=== PATIENT | female | born 1980 | race African-American/Black ===

== ENCOUNTER 2020-08-05 21:07 | Emergency (ER) | payer MEDICAID ==
[~2020-08-05] VITALS: Ht 172.7 cm; Wt 64.0 kg
[~2020-08-05 21:07] MED LIST: ABIL5 MT; AMI2 MT; APIX5TAB MT; COR3 MT; FURO-152 MT; GABA-532 MT; HYDR-4001 MT; LEVO500T2 MT; LORA-250 PO; MAGN400T26 MT; SERT-422 MT
[2020-08-05] MEDS ORDERED: ONDANSETRON HCL 4MG/2ML INJ IV STA (23:28)
[2020-08-05] MEDS ORDERED: MORPHINE SULFATE 4 MG/ML CPJ (NOT FOR IM USE) IV STA (23:28)
[2020-08-05] MEDS ORDERED: SODIUM CHLORIDE 0.9% 1,000 ML IV ONE (23:30)
[2020-08-06 00:03] LABS: EOSINOPHILS % 1.8 % (0.0-5.0); HEMATOCRIT. 29.9 % (36.0-48.0); HEMOGLOBIN. 9.1 g/dL (12.0-16.0); LYMPHOCYTES % 39.4 % (20.0-50.0); MEAN CORPUSCULAR HEMOGLOBIN 25.1 pg (28.0-32.0); MEAN CORPUSCULAR VOLUME 82.8 fL (81.0-99.0); MEAN PLATELET VOLUME 8.3 fl (7.4-10.4); MONOCYTES % 7.4 % (2.0-8.0); NEUTROPHILS % 50.4 % (40.0-76.0); PLATELET 260 x1000/uL (130-400); RED BLOOD CELL COUNT 3.61 mill/uL (4.2-5.4); RED CELL DISTRIBUTION WIDTH 23.3 % (11.6-14.6)
[2020-08-06 00:09] LABS: CHLORIDE 106 mEq/L (98-107)
[2020-08-06 00:30] LABS: HCG SCREEN NEGATIVE
[2020-08-06 01:01] LABS: CLARITY URINE CLOUDY (CLEAR); COLOR URINE DARK YELLOW (YELLOW); KETONES URINE TRACE (NEGATIVE); LEUKOCYTE ESTERASE URINE NEGATIVE (NEGATIVE); NITRITE URINE NEGATIVE (NEGATIVE); OCCULT BLOOD URINE NEGATIVE (NEGATIVE); PH URINE 5.5 (4.5-8.0); PROTEIN URINE 2+ (NEGATIVE); SPECIFIC GRAVITY URINE 1.024 (1.005-1.030)
[2020-08-06] MEDS ORDERED: LORAZEPAM 1MG TABLET PO ONE (03:30)
[2020-08-06] MEDS ORDERED: ONDANSETRON 4MG ODT PO ONE (06:00)
[2020-08-06 07:30] VITALS: BP 119/78
== END 2020-08-06 08:25 ==
LOC: ER 21:07
DX: R10.9 Unspecified abdominal pain (principal); I82.409 Acute embolism and thrombosis of unspecified deep veins of unspecified lower extremity; I11.0 Hypertensive heart disease with heart failure; I50.9 Heart failure, unspecified; Z87.01 Personal history of pneumonia (recurrent); Z86.73 Personal history of transient ischemic attack (TIA), and cerebral infarction without residual deficits; Z79.899 Other long term (current) drug therapy; Z88.0 Allergy status to penicillin; Z91.040 Latex allergy status
CPT/HCPCS: 36415; 71045; 74176; 80053; 81003; 81025; 83605; 83690; 84703; 85025; 96361; 96374; 96375; 99285; J2270; J2405; J7030; Q0162; Z7610

== ENCOUNTER 2020-08-14 23:29 | Inpatient (IN) | payer MEDICAID ==
[~2020-08-14] VITALS: Ht 190.5 cm; Wt 59.9 kg
[2020-08-14] MEDS ORDERED: ONDANSETRON HCL 4MG/2ML INJ IV STA (23:43)
[2020-08-14] MEDS ORDERED: MORPHINE SULFATE 4 MG/ML CPJ (NOT FOR IM USE) IV STA (23:43)
[2020-08-14] MEDS ORDERED: ASPIRIN 81MG TABLET PO ONE (23:45)
[2020-08-15 00:42] LABS: CHLORIDE 110 mEq/L (98-107)
[2020-08-15 00:46] LABS: ETHANOL BLOOD < 10 mg/dL
[2020-08-15 00:53] LABS: BASOPHILS % 1.6 % (0.0-2.0); EOSINOPHILS % 5.4 % (0.0-5.0); HEMATOCRIT. 30.8 % (36.0-48.0); HEMOGLOBIN. 9.6 g/dL (12.0-16.0); MEAN CORPUSCULAR HEMOGLOBIN 24.9 pg (28.0-32.0); MEAN CORPUSCULAR VOLUME 79.5 fL (81.0-99.0); MEAN PLATELET VOLUME 8.6 fl (7.4-10.4); MONOCYTES % 10.5 % (2.0-8.0); NEUTROPHILS % 46.5 % (40.0-76.0); PLATELET 257 x1000/uL (130-400); RED BLOOD CELL COUNT 3.88 mill/uL (4.2-5.4); RED CELL DISTRIBUTION WIDTH 21.7 % (11.6-14.6)
[2020-08-15 01:27] LABS: INR 1.4; PROTHROMBIN TIME 14.2 sec (9.6-11.0)
[2020-08-15] MEDS ORDERED: ENOXAPARIN 100MG/ML SYR SUBCUT SCH (03:00)
[2020-08-15] MEDS ORDERED: MORPHINE SULFATE 4 MG/ML CPJ (NOT FOR IM USE) IV SCH (04:45)
[2020-08-15] MEDS ORDERED: ONDANSETRON HCL 4MG/2ML INJ IV SCH (04:45)
[2020-08-15 04:47] LABS: CHLORIDE 110 mEq/L (98-107)
[2020-08-15] MEDS ORDERED: IOHEXOL-350 100 ML BOTTLE ONE (05:11)
[2020-08-15] MEDS ORDERED: ONDANSETRON HCL 4MG/2ML INJ IV PRN ×3 (08:45→13:30)
[2020-08-15] MEDS ORDERED: ACETAMINOPHEN 325MG TABLET PO PRN ×2 (08:45→09:00)
[2020-08-15] MEDS ORDERED: TRAMADOL 50MG TABLET PO PRN ×2 (08:45→09:00)
[2020-08-15 09:00] VITALS: BP 131/100
[2020-08-15] MEDS ORDERED: APIXABAN 5 MG TABLET PO SCH (09:00)
[2020-08-15] MEDS ORDERED: CARVEDILOL 3.125 MG TABLET PO SCH (09:00)
[2020-08-15] MEDS ORDERED: FUROSEMIDE 40MG/4ML VIAL IVP SCH (09:00)
[2020-08-15] MEDS ORDERED: FERROUS SULFATE 325MG TABLET PO SCH (09:00)
[2020-08-15] MEDS ORDERED: ENOXAPARIN 30MG/0.3ML SYR SUBCUT SCH (09:00)
[2020-08-15] MEDS ORDERED: DOCUSATE SODIUM 250MG CAPSULE PO SCH (09:00)
[2020-08-15 09:06] VITALS: BP 131/100
[2020-08-15] MEDS ORDERED: NITROGLYCERIN OINT 1GM/INCH UDPKT TD SCH (09:30)
[2020-08-15] MEDS: CARVEDILOL 3.125 MG TABLET PO SCH ×2 (09:30→21:05)
[2020-08-15] MEDS: DOCUSATE SODIUM SUGAR FREE 100MG/10ML UDC PO SCH ×2 (11:00→12:07)
[2020-08-15 12:00] VITALS: BP 111/77
[2020-08-15] MEDS: NITROGLYCERIN OINT 1GM/INCH UDPKT TD SCH ×2 (12:10→21:05)
[2020-08-15] MEDS: FERROUS SULFATE 325MG TABLET PO SCH ×2 (12:11→17:59)
[2020-08-15] MEDS: FUROSEMIDE 40MG/4ML VIAL IVP SCH ×2 (12:11→17:59)
[2020-08-15] MEDS: ONDANSETRON HCL 4MG/2ML INJ IV PRN ×2 (13:50→19:43)
[2020-08-15 16:00] VITALS: BP 101/69
[2020-08-15] MEDS: APIXABAN 5 MG TABLET PO SCH (17:59)
[2020-08-15] MEDS: KETOROLAC 30MG/ML VIAL IV PRN (21:01)
[2020-08-16] MEDS: ONDANSETRON HCL 4MG/2ML INJ IV PRN ×2 (02:01→12:40)
[2020-08-16] MEDS: KETOROLAC 30MG/ML VIAL IV PRN (02:39)
[2020-08-16] MEDS: NITROGLYCERIN OINT 1GM/INCH UDPKT TD SCH ×2 (02:42→12:45)
[2020-08-16] MEDS: FUROSEMIDE 40MG/4ML VIAL IVP SCH (05:58)
[2020-08-16] MEDS: FERROUS SULFATE 325MG TABLET PO SCH ×2 (07:40→12:40)
[2020-08-16] MEDS: CARVEDILOL 3.125 MG TABLET PO SCH (09:00)
[2020-08-16] MEDS: DOCUSATE SODIUM SUGAR FREE 100MG/10ML UDC PO SCH (09:00)
[2020-08-16] MEDS: APIXABAN 5 MG TABLET PO SCH (09:00)
[2020-08-16 12:03] VITALS: BP 120/81
== END 2020-08-16 15:15 | DRG 194 ==
LOC: ER 23:29 → 8WST 08-15 05:09 → ENRESERV 08-15 07:59 → ER 08-15 08:40
PROVIDERS: ADMIT Internal Medicine; ATTEND Internal Medicine
DX: I11.0 Hypertensive heart disease with heart failure (principal); R18.8 Other ascites; E44.0 Moderate protein-calorie malnutrition; I42.9 Cardiomyopathy, unspecified; E87.5 Hyperkalemia; I50.23 Acute on chronic systolic (congestive) heart failure; D64.9 Anemia, unspecified; R07.89 Other chest pain; R74.01 Elevation of levels of liver transaminase levels; Z86.711 Personal history of pulmonary embolism; Z88.8 Allergy status to other drugs, medicaments and biological substances; Z91.040 Latex allergy status; Z68.1 Body mass index [BMI] 19.9 or less, adult; Z79.899 Other long term (current) drug therapy
CPT/HCPCS: 36415; 71045; 71275; 76700; 80053; 80320; 83880; 84484; 85025; 93005; 93306; 93970; 99291; J1650; J1885; J1940; J2270; J2405; Q9967; G0480

== ENCOUNTER 2020-08-31 01:57 | Inpatient (IN) | payer MEDICAID ==
[~2020-08-31] VITALS: Ht 190.5 cm; Wt 95.3 kg
[2020-08-31] MEDS ORDERED: ONDANSETRON HCL 4MG/2ML INJ IV STA (03:32)
[2020-08-31] MEDS ORDERED: MORPHINE SULFATE 4 MG/ML CPJ (NOT FOR IM USE) IV STA (03:32)
[2020-08-31] MEDS ORDERED: ASPIRIN 81MG TABLET PO ONE (03:45)
[2020-08-31] MEDS ORDERED: NITROGLYCERIN OINT 1GM/INCH UDPKT TD ONE (03:45)
[2020-08-31 04:09] LABS: BASOPHILS % 0.8 % (0.0-2.0); EOSINOPHILS % 1.3 % (0.0-5.0); HEMATOCRIT. 32.4 % (36.0-48.0); HEMOGLOBIN. 9.9 g/dL (12.0-16.0); LYMPHOCYTES % 33.1 % (20.0-50.0); MEAN CORPUSCULAR HEMOGLOBIN 24.3 pg (28.0-32.0); MEAN CORPUSCULAR VOLUME 79.9 fL (81.0-99.0); MEAN PLATELET VOLUME 8.4 fl (7.4-10.4); MONOCYTES % 13.5 % (2.0-8.0); NEUTROPHILS % 51.3 % (40.0-76.0); PLATELET 199 x1000/uL (130-400); RED BLOOD CELL COUNT 4.06 mill/uL (4.2-5.4); RED CELL DISTRIBUTION WIDTH 21.6 % (11.6-14.6)
[2020-08-31 04:17] LABS: CHLORIDE 105 mEq/L (98-107)
[2020-08-31 04:19] LABS: INR 1.4; PROTHROMBIN TIME 14.5 sec (9.6-11.0)
[2020-08-31 04:46] LABS: HCG SCREEN NEGATIVE
[2020-08-31] MEDS ORDERED: DOCUSATE SODIUM 100MG CAPSULE PO PRN (12:30)
[2020-08-31] MEDS ORDERED: MAGNESIUM/ALUMINUM HYDROXIDE/SIMETHICONE 30ML UDC PO PRN (12:30)
[2020-08-31] MEDS ORDERED: CLONIDINE 0.1MG TABLET PO PRN (12:30)
[2020-08-31] MEDS ORDERED: ACETAMINOPHEN 325MG TABLET PO PRN (12:30)
[2020-08-31] MEDS: LORAZEPAM 1MG TABLET PO PRN (13:04)
[2020-08-31] MEDS: GABAPENTIN 300MG CAPSULE PO SCH ×2 (13:05→17:13)
[2020-08-31] MEDS: ONDANSETRON HCL 4MG/2ML INJ IV PRN ×2 (13:13→20:03)
[2020-08-31] MEDS: HYDROCODONE/ACETAMINOPHEN 5/325MG TABLET PO PRN ×2 (13:13→13:47)
[2020-08-31] MEDS: APIXABAN 5 MG TABLET PO SCH ×2 (14:27→17:15)
[2020-08-31] MEDS: AMIODARONE HCL 200 MG TABLET PO SCH ×2 (14:27→17:14)
[2020-08-31 14:52] LABS: TOTAL IRON BINDING CAPACITY 430 ug/dL (250-450)
[2020-08-31] MEDS: MAGNESIUM OXIDE 400MG TABLET PO SCH (17:14)
[2020-08-31] MEDS: FUROSEMIDE 20MG TABLET PO SCH (17:15)
[2020-09-01] MEDS: LORAZEPAM 1MG TABLET PO PRN ×2 (00:13→17:52)
[2020-09-01] MEDS: ONDANSETRON HCL 4MG/2ML INJ IV PRN ×3 (03:18→20:36)
[2020-09-01 05:59] LABS: BASOPHILS % 0.9 % (0.0-2.0); EOSINOPHILS % 2.6 % (0.0-5.0); HEMATOCRIT. 30.9 % (36.0-48.0); HEMOGLOBIN. 9.6 g/dL (12.0-16.0); LYMPHOCYTES % 44.6 % (20.0-50.0); MEAN CORPUSCULAR HEMOGLOBIN 24.5 pg (28.0-32.0); MEAN CORPUSCULAR VOLUME 79.3 fL (81.0-99.0); MEAN PLATELET VOLUME 8.9 fl (7.4-10.4); MONOCYTES % 13.1 % (2.0-8.0); NEUTROPHILS % 38.8 % (40.0-76.0); PLATELET 172 x1000/uL (130-400); RED CELL DISTRIBUTION WIDTH 21.3 % (11.6-14.6)
[2020-09-01 06:10] LABS: CHLORIDE 105 mEq/L (98-107)
[2020-09-01 06:20] LABS: PHOSPHORUS 4.2 mg/dL (2.5-4.9)
[2020-09-01 06:21] LABS: LDL CHOLESTEROL 45 mg/dL (5-100)
[2020-09-01 06:22] LABS: HDL CHOLESTEROL 44 mg/dL (40-59)
[2020-09-01 10:00] VITALS: BP 108/78
[2020-09-01] MEDS: FUROSEMIDE 20MG TABLET PO SCH ×2 (10:20→17:41)
[2020-09-01] MEDS: AMIODARONE HCL 200 MG TABLET PO SCH ×2 (10:20→17:41)
[2020-09-01] MEDS: PANTOPRAZOLE SODIUM 40 MG/VIAL IV SCH (10:22)
[2020-09-01] MEDS: SERTRALINE HCL 50MG TABLET PO SCH (10:22)
[2020-09-01] MEDS: HYDROCODONE/ACETAMINOPHEN 5/325MG TABLET PO PRN (10:22)
[2020-09-01] MEDS: MAGNESIUM OXIDE 400MG TABLET PO SCH ×2 (10:22→17:41)
[2020-09-01] MEDS: GABAPENTIN 300MG CAPSULE PO SCH ×3 (10:23→17:42)
[2020-09-01] MEDS: APIXABAN 5 MG TABLET PO SCH (10:23)
[2020-09-01 12:00] VITALS: BP 110/71
[2020-09-01] MEDS: ARIPIPRAZOLE 5MG TABLET PO SCH (12:08)
[2020-09-01 12:10] VITALS: BP 108/78
[2020-09-01 16:00] VITALS: BP 104/67
[2020-09-01] MEDS: METOCLOPRAMIDE HCL 10MG/2ML VIAL IV SCH ×2 (17:32→23:17)
[2020-09-01 20:00] VITALS: BP 108/71
[2020-09-01] MEDS: MORPHINE SULFATE 2 MG/ML CPJ (NOT FOR IM USE) IV PRN (21:56)
[2020-09-01] MEDS: ENOXAPARIN 100MG/ML SYR SUBCUT SCH (21:57)
[2020-09-02] VITALS: BP 107/67
[2020-09-02] MEDS: MORPHINE SULFATE 2 MG/ML CPJ (NOT FOR IM USE) IV PRN ×2 (02:01→06:33)
[2020-09-02] MEDS: ONDANSETRON HCL 4MG/2ML INJ IV PRN (02:40)
[2020-09-02 04:00] VITALS: BP 108/68
[2020-09-02] MEDS: METOCLOPRAMIDE HCL 10MG/2ML VIAL IV SCH (05:03)
[2020-09-02 06:13] LABS: CHLORIDE 104 mEq/L (98-107)
[2020-09-02 06:16] LABS: INR 1.4; PROTHROMBIN TIME 14.4 sec (9.6-11.0)
[2020-09-02 06:18] LABS: AMYLASE 45 IU/L (25-115)
[2020-09-02 06:19] LABS: GAMMA GLUTAMYL TRANSPEPTIDASE 129 IU/L (7-32)
[2020-09-02 06:20] LABS: PHOSPHORUS 4.1 mg/dL (2.5-4.9)
[2020-09-02 06:33] LABS: BASOPHILS % 0.7 % (0.0-2.0); EOSINOPHILS % 2.6 % (0.0-5.0); HEMATOCRIT. 30.6 % (36.0-48.0); HEMOGLOBIN. 9.5 g/dL (12.0-16.0); MEAN CORPUSCULAR HEMOGLOBIN 24.6 pg (28.0-32.0); MONOCYTES % 11.9 % (2.0-8.0); NEUTROPHILS % 45.8 % (40.0-76.0); PLATELET 192 x1000/uL (130-400); RED BLOOD CELL COUNT 3.88 mill/uL (4.2-5.4); RED CELL DISTRIBUTION WIDTH 21.1 % (11.6-14.6)
[2020-09-02 06:37] LABS: FERRITIN 69 ng/mL (10-291)
[2020-09-02 06:44] LABS: VITAMIN B12 SERUM 1147 pg/mL (211-911)
[2020-09-02 06:48] LABS: HEPATITIS B SURFACE ANTIGEN NEGATIVE
[2020-09-02 07:20] LABS: HEPATITIS A AB IGM NEGATIVE (NEGATIVE)
[2020-09-02] MEDS ORDERED: KETOROLAC 15MG/ML VIAL IV ONE (07:45)
[2020-09-02 08:00] VITALS: BP 103/65
[2020-09-02] MEDS: FUROSEMIDE 20MG TABLET PO SCH ×2 (09:35→17:13)
[2020-09-02] MEDS: GABAPENTIN 300MG CAPSULE PO SCH ×3 (09:35→17:12)
[2020-09-02] MEDS: AMIODARONE HCL 200 MG TABLET PO SCH ×2 (09:35→17:12)
[2020-09-02] MEDS: SERTRALINE HCL 50MG TABLET PO SCH (09:35)
[2020-09-02] MEDS: ARIPIPRAZOLE 5MG TABLET PO SCH (09:35)
[2020-09-02] MEDS: MAGNESIUM OXIDE 400MG TABLET PO SCH ×2 (09:35→17:12)
[2020-09-02] MEDS: PANTOPRAZOLE SODIUM 40 MG/VIAL IV SCH (09:35)
[2020-09-02] MEDS: ENOXAPARIN 100MG/ML SYR SUBCUT SCH ×2 (09:42→21:50)
[2020-09-02] MEDS ORDERED: LEVO25TA7 PO (10:25)
[2020-09-02 12:00] VITALS: BP 125/71
[2020-09-02] MEDS: METOCLOPRAMIDE HCL 10MG TABLET PO SCH ×2 (12:45→17:12)
[2020-09-02] MEDS: HYDROCODONE/ACETAMINOPHEN 5/325MG TABLET PO PRN (12:46)
[2020-09-02 16:00] VITALS: BP 115/74
[2020-09-02 20:00] VITALS: BP 101/70
[2020-09-03] VITALS (7 sets, daily range): BP systolic 98–120; BP diastolic 63–80
[2020-09-03] MEDS: METOCLOPRAMIDE HCL 10MG TABLET PO SCH ×4 (00:01→17:34)
[2020-09-03] MEDS: DIPHENHYDRAMINE 25MG CAPSULE PO PRN (00:01)
[2020-09-03] MEDS: ONDANSETRON 4MG ODT PO PRN ×2 (05:12→14:17)
[2020-09-03] MEDS: PANTOPRAZOLE 40MG DR TABLET PO SCH (05:49)
[2020-09-03] MEDS: LEVOTHYROXINE SODIUM 25MCG TABLET PO SCH (05:49)
[2020-09-03 07:05] LABS: INR 1.4; PROTHROMBIN TIME 14.9 sec (9.6-11.0)
[2020-09-03 07:11] LABS: PHOSPHORUS 3.4 mg/dL (2.5-4.9)
[2020-09-03] MEDS: FUROSEMIDE 20MG TABLET PO SCH ×2 (09:55→17:34)
[2020-09-03] MEDS: ARIPIPRAZOLE 5MG TABLET PO SCH (09:56)
[2020-09-03] MEDS: GABAPENTIN 300MG CAPSULE PO SCH ×3 (09:56→17:34)
[2020-09-03] MEDS: MAGNESIUM OXIDE 400MG TABLET PO SCH ×2 (09:56→17:35)
[2020-09-03] MEDS: SERTRALINE HCL 50MG TABLET PO SCH (09:56)
[2020-09-03] MEDS: ENOXAPARIN 100MG/ML SYR SUBCUT SCH ×2 (09:59→21:12)
[2020-09-03] MEDS: AMIODARONE HCL 200 MG TABLET PO SCH ×2 (10:01→17:34)
[2020-09-03] MEDS: LORAZEPAM 2MG/ML CPJ IV PRN ×2 (10:49→18:42)
[2020-09-03] MEDS: MORPHINE SULFATE 2 MG/ML CPJ (NOT FOR IM USE) IV PRN ×2 (15:34→22:14)
[2020-09-03] MEDS: ONDANSETRON HCL 4MG/2ML INJ IV PRN (22:13)
[2020-09-04] VITALS: BP 118/83
[2020-09-04] MEDS: LORAZEPAM 2MG/ML CPJ IV PRN ×3 (01:24→23:06)
[2020-09-04 04:00] VITALS: BP 115/74
[2020-09-04] MEDS: ONDANSETRON HCL 4MG/2ML INJ IV PRN ×3 (04:37→20:27)
[2020-09-04] MEDS: MORPHINE SULFATE 2 MG/ML CPJ (NOT FOR IM USE) IV PRN ×3 (04:38→20:28)
[2020-09-04] MEDS: METOCLOPRAMIDE HCL 10MG TABLET PO SCH ×7 (06:00→23:02)
[2020-09-04] MEDS: PANTOPRAZOLE 40MG DR TABLET PO SCH (06:45)
[2020-09-04] MEDS: LEVOTHYROXINE SODIUM 25MCG TABLET PO SCH (06:45)
[2020-09-04 07:04] LABS: BASOPHILS % 0.9 % (0.0-2.0); EOSINOPHILS % 1.1 % (0.0-5.0); HEMATOCRIT. 28.8 % (36.0-48.0); HEMOGLOBIN. 8.9 g/dL (12.0-16.0); LYMPHOCYTES % 41.2 % (20.0-50.0); MEAN CORPUSCULAR HEMOGLOBIN 24.5 pg (28.0-32.0); MEAN CORPUSCULAR VOLUME 79.1 fL (81.0-99.0); MEAN PLATELET VOLUME 9.1 fl (7.4-10.4); MONOCYTES % 12.9 % (2.0-8.0); NEUTROPHILS % 43.9 % (40.0-76.0); PLATELET 191 x1000/uL (130-400); RED BLOOD CELL COUNT 3.65 mill/uL (4.2-5.4); RED CELL DISTRIBUTION WIDTH 21.7 % (11.6-14.6)
[2020-09-04 07:05] LABS: INR 1.4; PROTHROMBIN TIME 14.3 sec (9.6-11.0)
[2020-09-04 07:09] LABS: CHLORIDE 105 mEq/L (98-107)
[2020-09-04 07:16] LABS: PHOSPHORUS 3.8 mg/dL (2.5-4.9)
[2020-09-04 08:00] VITALS: BP 119/79
[2020-09-04] MEDS: ENOXAPARIN 100MG/ML SYR SUBCUT SCH (09:46)
[2020-09-04] MEDS: ARIPIPRAZOLE 5MG TABLET PO SCH (09:47)
[2020-09-04] MEDS: GABAPENTIN 300MG CAPSULE PO SCH ×4 (09:47→18:13)
[2020-09-04] MEDS: FUROSEMIDE 20MG TABLET PO SCH ×2 (09:47→17:00)
[2020-09-04] MEDS: SERTRALINE HCL 50MG TABLET PO SCH (09:49)
[2020-09-04] MEDS: MAGNESIUM OXIDE 400MG TABLET PO SCH ×3 (09:49→18:13)
[2020-09-04] MEDS: AMIODARONE HCL 200 MG TABLET PO SCH ×3 (09:49→18:13)
[2020-09-04 12:00] VITALS: BP 123/88
[2020-09-04 16:00] VITALS: BP 103/76
[2020-09-04 20:00] VITALS: BP 115/77
[2020-09-05] VITALS: BP 113/77
[2020-09-05] MEDS: ONDANSETRON HCL 4MG/2ML INJ IV PRN ×3 (03:24→20:08)
[2020-09-05 04:00] VITALS: BP 111/75
[2020-09-05] MEDS: METOCLOPRAMIDE HCL 10MG TABLET PO SCH ×4 (05:53→23:57)
[2020-09-05] MEDS: LEVOTHYROXINE SODIUM 25MCG TABLET PO SCH (05:54)
[2020-09-05] MEDS: PANTOPRAZOLE 40MG DR TABLET PO SCH (05:54)
[2020-09-05 07:10] LABS: HEMATOCRIT. 27.2 % (36.0-48.0); HEMOGLOBIN. 8.5 g/dL (12.0-16.0); MEAN CORPUSCULAR HEMOGLOBIN 24.8 pg (28.0-32.0); MEAN CORPUSCULAR VOLUME 79.4 fL (81.0-99.0); PLATELET 172 x1000/uL (130-400); RED BLOOD CELL COUNT 3.43 mill/uL (4.2-5.4); RED CELL DISTRIBUTION WIDTH 21.6 % (11.6-14.6)
[2020-09-05 07:19] LABS: CHLORIDE 105 mEq/L (98-107)
[2020-09-05 08:00] VITALS: BP 99/65
[2020-09-05] MEDS: FUROSEMIDE 20MG TABLET PO SCH ×2 (08:43→17:51)
[2020-09-05] MEDS: AMIODARONE HCL 200 MG TABLET PO SCH ×2 (08:43→17:51)
[2020-09-05] MEDS: MAGNESIUM OXIDE 400MG TABLET PO SCH ×2 (08:43→17:51)
[2020-09-05] MEDS: ARIPIPRAZOLE 5MG TABLET PO SCH (08:43)
[2020-09-05] MEDS: SERTRALINE HCL 50MG TABLET PO SCH (08:43)
[2020-09-05] MEDS: GABAPENTIN 300MG CAPSULE PO SCH ×3 (08:43→17:51)
[2020-09-05] MEDS: IRON SUCROSE COMPLEX 100 MG/5 ML ML IV SCH (09:36)
[2020-09-05] MEDS: MORPHINE SULFATE 2 MG/ML CPJ (NOT FOR IM USE) IV PRN ×2 (09:36→17:16)
[2020-09-05 12:00] VITALS: BP 106/76
[2020-09-05 13:01] LABS: PLATELET ESTIMATE NORMAL
[2020-09-05 16:00] VITALS: BP 109/71
[2020-09-05 20:00] VITALS: BP 112/81
[2020-09-05] MEDS: ENOXAPARIN 100MG/ML SYR SUBCUT SCH (20:13)
[2020-09-05] MEDS: IPRATROPIUM/ALBUTEROL 0.5-3(2.5)MG/3ML NEB HHN PRN (20:52)
[2020-09-05] MEDS: LORAZEPAM 2MG/ML CPJ IV PRN (21:44)
[2020-09-06] VITALS: BP 118/85
[2020-09-06] MEDS: MORPHINE SULFATE 2 MG/ML CPJ (NOT FOR IM USE) IV PRN ×3 (00:20→21:49)
[2020-09-06] MEDS: IPRATROPIUM/ALBUTEROL 0.5-3(2.5)MG/3ML NEB HHN PRN ×2 (02:37→20:37)
[2020-09-06] MEDS: ONDANSETRON HCL 4MG/2ML INJ IV PRN ×2 (03:02→23:23)
[2020-09-06 04:00] VITALS: BP 113/74
[2020-09-06] MEDS: METOCLOPRAMIDE HCL 10MG TABLET PO SCH ×4 (06:00→23:23)
[2020-09-06] MEDS: LEVOTHYROXINE SODIUM 25MCG TABLET PO SCH (06:04)
[2020-09-06] MEDS: PANTOPRAZOLE 40MG DR TABLET PO SCH (06:04)
[2020-09-06 08:00] VITALS: BP 111/73
[2020-09-06] MEDS: ENOXAPARIN 100MG/ML SYR SUBCUT SCH (09:00)
[2020-09-06] MEDS: SERTRALINE HCL 50MG TABLET PO SCH (09:33)
[2020-09-06] MEDS: GABAPENTIN 300MG CAPSULE PO SCH ×3 (09:33→17:19)
[2020-09-06] MEDS: ARIPIPRAZOLE 5MG TABLET PO SCH (09:33)
[2020-09-06] MEDS: IRON SUCROSE COMPLEX 100 MG/5 ML ML IV SCH (09:33)
[2020-09-06] MEDS: MAGNESIUM OXIDE 400MG TABLET PO SCH ×2 (09:33→17:19)
[2020-09-06] MEDS: FUROSEMIDE 20MG TABLET PO SCH ×2 (09:33→17:19)
[2020-09-06] MEDS: AMIODARONE HCL 200 MG TABLET PO SCH (09:34)
[2020-09-06] MEDS ORDERED: LIDOCAINE HCL 1% 20ML VIAL (Pyxis) INJ ONE (11:21)
[2020-09-06] MEDS ORDERED: SODIUM BICARBONATE 4% (2.4MEQ) 5ML VIAL IV ONE (11:22)
[2020-09-06] MEDS: LORAZEPAM 2MG/ML CPJ IV PRN (13:07)
[2020-09-06 16:00] VITALS: BP 97/62
[2020-09-06] MEDS: APIXABAN 5 MG TABLET PO SCH (17:19)
[2020-09-06 20:30] LABS: HEMATOCRIT. 30.7 % (36.0-48.0); HEMOGLOBIN. 9.3 g/dL (12.0-16.0); MEAN CORPUSCULAR HEMOGLOBIN 24.1 pg (28.0-32.0); MEAN CORPUSCULAR VOLUME 79.6 fL (81.0-99.0); PLATELET 213 x1000/uL (130-400); RED BLOOD CELL COUNT 3.86 mill/uL (4.2-5.4); RED CELL DISTRIBUTION WIDTH 21.3 % (11.6-14.6)
[2020-09-06 20:36] LABS: CHLORIDE 103 mEq/L (98-107)
[2020-09-06 21:04] VITALS: BP 106/67
[2020-09-06 22:11] LABS: PLATELET ESTIMATE NORMAL
[2020-09-06] MEDS: DIPHENHYDRAMINE 25MG CAPSULE PO PRN (23:23)
[2020-09-07] VITALS: BP 124/65
[2020-09-07] MEDS: MORPHINE SULFATE 2 MG/ML CPJ (NOT FOR IM USE) IV PRN ×3 (03:50→16:23)
[2020-09-07 04:00] VITALS: BP 123/87
[2020-09-07] MEDS: IPRATROPIUM/ALBUTEROL 0.5-3(2.5)MG/3ML NEB HHN PRN ×3 (04:26→18:56)
[2020-09-07] MEDS: ONDANSETRON HCL 4MG/2ML INJ IV PRN ×3 (05:27→18:31)
[2020-09-07] MEDS: METOCLOPRAMIDE HCL 10MG TABLET PO SCH ×4 (05:27→22:54)
[2020-09-07] MEDS: LEVOTHYROXINE SODIUM 25MCG TABLET PO SCH (05:47)
[2020-09-07] MEDS: PANTOPRAZOLE 40MG DR TABLET PO SCH (05:47)
[2020-09-07 08:00] VITALS: BP 109/67
[2020-09-07] MEDS: GABAPENTIN 300MG CAPSULE PO SCH ×3 (09:56→17:21)
[2020-09-07] MEDS: IRON SUCROSE COMPLEX 100 MG/5 ML ML IV SCH (09:56)
[2020-09-07] MEDS: FUROSEMIDE 20MG TABLET PO SCH ×2 (09:56→16:22)
[2020-09-07] MEDS: ARIPIPRAZOLE 5MG TABLET PO SCH (09:56)
[2020-09-07] MEDS: SERTRALINE HCL 50MG TABLET PO SCH (09:57)
[2020-09-07] MEDS: AMIODARONE HCL 200 MG TABLET PO SCH (09:57)
[2020-09-07] MEDS: APIXABAN 5 MG TABLET PO SCH ×2 (09:57→16:22)
[2020-09-07] MEDS: MAGNESIUM OXIDE 400MG TABLET PO SCH ×2 (10:00→16:23)
[2020-09-07 12:00] VITALS: BP 114/79
[2020-09-07] MEDS: LORAZEPAM 2MG/ML CPJ IV PRN ×2 (12:26→22:54)
[2020-09-07 16:00] VITALS: BP 127/85
[2020-09-07] MEDS: ONDANSETRON 4MG ODT PO PRN (17:17)
[2020-09-07 20:00] VITALS: BP 128/67
[2020-09-08] VITALS: BP 118/84
[2020-09-08] MEDS: MORPHINE SULFATE 2 MG/ML CPJ (NOT FOR IM USE) IV PRN ×2 (01:48→09:12)
[2020-09-08 04:00] VITALS: BP 112/81
[2020-09-08] MEDS: ONDANSETRON HCL 4MG/2ML INJ IV PRN ×3 (05:02→23:28)
[2020-09-08] MEDS: METOCLOPRAMIDE HCL 10MG TABLET PO SCH ×4 (05:02→23:28)
[2020-09-08] MEDS: PANTOPRAZOLE 40MG DR TABLET PO SCH (05:48)
[2020-09-08] MEDS: LEVOTHYROXINE SODIUM 25MCG TABLET PO SCH (05:48)
[2020-09-08 05:52] LABS: HEMATOCRIT. 30.1 % (36.0-48.0); MEAN CORPUSCULAR HEMOGLOBIN 24.1 pg (28.0-32.0); MEAN CORPUSCULAR VOLUME 80.4 fL (81.0-99.0); MEAN PLATELET VOLUME 9.2 fl (7.4-10.4); PLATELET 155 x1000/uL (130-400); RED BLOOD CELL COUNT 3.75 mill/uL (4.2-5.4); RED CELL DISTRIBUTION WIDTH 21.3 % (11.6-14.6)
[2020-09-08 06:35] LABS: CHLORIDE 105 mEq/L (98-107)
[2020-09-08 08:00] VITALS: BP 131/75
[2020-09-08] MEDS: ARIPIPRAZOLE 5MG TABLET PO SCH (08:58)
[2020-09-08] MEDS: GABAPENTIN 300MG CAPSULE PO SCH ×3 (08:58→17:25)
[2020-09-08] MEDS: FUROSEMIDE 20MG TABLET PO SCH ×2 (08:58→17:25)
[2020-09-08] MEDS: SERTRALINE HCL 50MG TABLET PO SCH (08:58)
[2020-09-08] MEDS: APIXABAN 5 MG TABLET PO SCH ×2 (08:58→17:25)
[2020-09-08] MEDS: MAGNESIUM OXIDE 400MG TABLET PO SCH ×2 (08:58→17:25)
[2020-09-08] MEDS: AMIODARONE HCL 200 MG TABLET PO SCH (08:58)
[2020-09-08 11:47] LABS: NUCLEATED RED BLOOD CELLS 13 /100 WBC
[2020-09-08 11:49] LABS: PLATELET ESTIMATE NORMAL
[2020-09-08 12:00] VITALS: BP 131/90
[2020-09-08] MEDS ORDERED: HYDROCODONE/ACETAMINOPHEN 5/325MG TABLET PO PRN (12:15)
[2020-09-08] MEDS ORDERED: MORPHINE SULFATE 2 MG/ML CPJ (NOT FOR IM USE) IV PRN (12:15)
[2020-09-08] MEDS: IPRATROPIUM/ALBUTEROL 0.5-3(2.5)MG/3ML NEB HHN PRN (13:42)
[2020-09-08 16:00] VITALS: BP 112/88
[2020-09-08] MEDS: LORAZEPAM 2MG/ML CPJ IV PRN ×2 (17:25→23:28)
[2020-09-08 20:00] VITALS: BP 120/84
[2020-09-09] VITALS: BP 122/87
[2020-09-09 04:00] VITALS: BP 127/86
[2020-09-09] MEDS: PANTOPRAZOLE 40MG DR TABLET PO SCH (06:35)
[2020-09-09] MEDS: METOCLOPRAMIDE HCL 10MG TABLET PO SCH ×3 (06:35→17:56)
[2020-09-09] MEDS: ONDANSETRON HCL 4MG/2ML INJ IV PRN ×2 (06:35→20:24)
[2020-09-09] MEDS: LEVOTHYROXINE SODIUM 25MCG TABLET PO SCH (06:35)
[2020-09-09 06:36] LABS: BASOPHILS % 0.9 % (0.0-2.0); EOSINOPHILS % 1.5 % (0.0-5.0); HEMATOCRIT. 31.1 % (36.0-48.0); HEMOGLOBIN. 9.4 g/dL (12.0-16.0); MEAN CORPUSCULAR HEMOGLOBIN 24.7 pg (28.0-32.0); MEAN CORPUSCULAR VOLUME 81.6 fL (81.0-99.0); MEAN PLATELET VOLUME 8.9 fl (7.4-10.4); MONOCYTES % 8.2 % (2.0-8.0); NEUTROPHILS % 54.4 % (40.0-76.0); PLATELET 176 x1000/uL (130-400); RED BLOOD CELL COUNT 3.81 mill/uL (4.2-5.4); RED CELL DISTRIBUTION WIDTH 21.4 % (11.6-14.6)
[2020-09-09] MEDS: LORAZEPAM 2MG/ML CPJ IV PRN ×3 (06:42→20:23)
[2020-09-09 06:46] LABS: CHLORIDE 104 mEq/L (98-107)
[2020-09-09 08:27] VITALS: BP 121/89
[2020-09-09] MEDS: GABAPENTIN 300MG CAPSULE PO SCH ×3 (08:56→17:56)
[2020-09-09] MEDS: SERTRALINE HCL 50MG TABLET PO SCH (08:56)
[2020-09-09] MEDS: ARIPIPRAZOLE 5MG TABLET PO SCH (08:56)
[2020-09-09] MEDS: FUROSEMIDE 20MG TABLET PO SCH ×2 (08:56→17:56)
[2020-09-09] MEDS: AMIODARONE HCL 200 MG TABLET PO SCH (08:57)
[2020-09-09] MEDS: MAGNESIUM OXIDE 400MG TABLET PO SCH ×2 (08:57→17:56)
[2020-09-09] MEDS: APIXABAN 5 MG TABLET PO SCH ×2 (09:00→17:56)
[2020-09-09 12:00] VITALS: BP 108/72
[2020-09-09 16:00] VITALS: BP 113/71
[2020-09-09 20:00] VITALS: BP 120/83
[2020-09-10] VITALS: BP 111/70
[2020-09-10] MEDS: METOCLOPRAMIDE HCL 10MG TABLET PO SCH ×6 (00:19→18:29)
[2020-09-10] MEDS: LORAZEPAM 2MG/ML CPJ IV PRN ×3 (03:27→18:29)
[2020-09-10 04:00] VITALS: BP 117/63
[2020-09-10] MEDS: LEVOTHYROXINE SODIUM 25MCG TABLET PO SCH (06:41)
[2020-09-10] MEDS: PANTOPRAZOLE 40MG DR TABLET PO SCH (06:41)
[2020-09-10 08:00] VITALS: BP 133/97
[2020-09-10] MEDS: AMIODARONE HCL 200 MG TABLET PO SCH (08:46)
[2020-09-10] MEDS: GABAPENTIN 300MG CAPSULE PO SCH ×4 (08:46→17:09)
[2020-09-10] MEDS: FUROSEMIDE 20MG TABLET PO SCH ×2 (08:46→17:09)
[2020-09-10] MEDS: APIXABAN 5 MG TABLET PO SCH ×2 (08:46→17:09)
[2020-09-10] MEDS: ARIPIPRAZOLE 5MG TABLET PO SCH (08:46)
[2020-09-10] MEDS: SERTRALINE HCL 50MG TABLET PO SCH (08:46)
[2020-09-10] MEDS: MAGNESIUM OXIDE 400MG TABLET PO SCH ×2 (08:46→17:09)
[2020-09-10 10:00] LABS: BG BASE EXCESS 2.3 mmol/L (-2.0-2.0); BG CARBOXYHEMOGLOBIN 0.3 % (0.5-1.5); BG DEOXYHEMOGLOBIN 1.6 % (0.0-5.0); BG FRACTION INSPIRED OXYGEN 32; BG HCO3 ACT 26.9 mmol/L (22.0-26.0); BG METHEMOGLOBIN 0.5 % (0.0-1.5); BG OXYGEN SATURATION 98.4 % (92.0-98.5); BG OXYHEMOGLOBIN 97.6 % (94.0-97.0); BG PCO2 41.6 mmHg (35.0-45.0); BG PH 7.428 (7.350-7.450); BG PO2 131.9 mmHg (75.0-100.0); BG SAMPLE SITE RIGHT BRACHIAL; BG TOTAL HEMOGLOBIN 9.6 g/dL (12.0-18.0); BG VENT MODE NASAL CANNULA
[2020-09-10] MEDS: ONDANSETRON HCL 4MG/2ML INJ IV PRN ×2 (11:33→22:57)
[2020-09-10 12:00] VITALS: BP 135/84
[2020-09-10 16:00] VITALS: BP 120/81
[2020-09-10] MEDS: ONDANSETRON 4MG ODT PO PRN (18:29)
[2020-09-10 20:02] VITALS: BP 102/73
[2020-09-10] MEDS: IPRATROPIUM/ALBUTEROL 0.5-3(2.5)MG/3ML NEB HHN PRN (23:50)
[2020-09-11] MEDS ORDERED: NON FORMULARY PATIENT HOME MED XX SCH
[2020-09-11 00:09] VITALS: BP 134/99
[2020-09-11] MEDS: LORAZEPAM 2MG/ML CPJ IV PRN ×2 (00:27→18:38)
[2020-09-11] MEDS: METOCLOPRAMIDE HCL 10MG TABLET PO SCH ×5 (00:27→17:36)
[2020-09-11 04:00] VITALS: BP 114/81
[2020-09-11] MEDS: IPRATROPIUM/ALBUTEROL 0.5-3(2.5)MG/3ML NEB HHN PRN ×2 (05:02→13:06)
[2020-09-11] MEDS: PANTOPRAZOLE 40MG DR TABLET PO SCH ×2 (06:45→07:05)
[2020-09-11] MEDS: LEVOTHYROXINE SODIUM 25MCG TABLET PO SCH ×2 (06:45→07:05)
[2020-09-11 08:00] VITALS: BP 128/89
[2020-09-11] MEDS: FUROSEMIDE 20MG TABLET PO SCH ×2 (09:20→17:36)
[2020-09-11] MEDS: GABAPENTIN 300MG CAPSULE PO SCH ×3 (09:21→17:36)
[2020-09-11] MEDS: ONDANSETRON 4MG ODT PO PRN (09:21)
[2020-09-11] MEDS: MAGNESIUM OXIDE 400MG TABLET PO SCH ×2 (09:21→17:36)
[2020-09-11] MEDS: AMIODARONE HCL 200 MG TABLET PO SCH (09:21)
[2020-09-11] MEDS: ARIPIPRAZOLE 5MG TABLET PO SCH (09:21)
[2020-09-11] MEDS: APIXABAN 5 MG TABLET PO SCH ×2 (09:22→17:36)
[2020-09-11] MEDS: SERTRALINE HCL 50MG TABLET PO SCH (09:22)
[2020-09-11 12:00] VITALS: BP 108/81
[2020-09-11] MEDS: LACTULOSE 300 ML in WATER FOR IRRIGATION,STERILE 700 ML IR NR ×2 (13:00→13:35)
[2020-09-11] MEDS: LACTULOSE 20G/30ML UDC PO SCH ×2 (13:34→22:00)
[2020-09-11 16:00] VITALS: BP 113/72
[2020-09-11 20:00] VITALS: BP 106/66
[2020-09-11] MEDS: [UNRECOGNIZED DRUG - OTHER] IV SCH (22:00)
[2020-09-11] MEDS: HEPARIN 100 UNIT/ML IV SCH (22:00)
[2020-09-12] VITALS: BP 115/64
[2020-09-12] MEDS ORDERED: MORPHINE SULFATE 2 MG/ML CPJ (NOT FOR IM USE) IV PRN (00:15)
[2020-09-12] MEDS: METOCLOPRAMIDE HCL 10MG TABLET PO SCH ×3 (00:34→12:51)
[2020-09-12] MEDS: LORAZEPAM 2MG/ML CPJ IV PRN ×2 (00:35→06:34)
[2020-09-12] MEDS: IPRATROPIUM/ALBUTEROL 0.5-3(2.5)MG/3ML NEB HHN PRN ×2 (02:48→06:13)
[2020-09-12] MEDS: LEVOTHYROXINE SODIUM 25MCG TABLET PO SCH (05:45)
[2020-09-12] MEDS: LACTULOSE 20G/30ML UDC PO SCH ×2 (05:45→14:17)
[2020-09-12] MEDS: PANTOPRAZOLE 40MG DR TABLET PO SCH (05:45)
[2020-09-12 07:02] LABS: BASOPHILS % 1.4 % (0.0-2.0); EOSINOPHILS % 1.8 % (0.0-5.0); HEMATOCRIT. 29.2 % (36.0-48.0); HEMOGLOBIN. 8.9 g/dL (12.0-16.0); LYMPHOCYTES % 21.5 % (20.0-50.0); MEAN CORPUSCULAR VOLUME 81.8 fL (81.0-99.0); MONOCYTES % 10.5 % (2.0-8.0); NEUTROPHILS % 64.8 % (40.0-76.0); PLATELET 117 x1000/uL (130-400); RED BLOOD CELL COUNT 3.57 mill/uL (4.2-5.4); RED CELL DISTRIBUTION WIDTH 21.3 % (11.6-14.6)
[2020-09-12 07:20] LABS: CHLORIDE 106 mEq/L (98-107)
[2020-09-12 08:00] VITALS: BP 122/89
[2020-09-12] MEDS: [UNRECOGNIZED DRUG - OTHER] IV SCH ×2 (09:00→09:28)
[2020-09-12] MEDS: HEPARIN 100 UNIT/ML IV SCH ×2 (09:00→09:28)
[2020-09-12] MEDS: APIXABAN 5 MG TABLET PO SCH (09:29)
[2020-09-12] MEDS: AMIODARONE HCL 200 MG TABLET PO SCH (09:29)
[2020-09-12] MEDS: ARIPIPRAZOLE 5MG TABLET PO SCH (09:29)
[2020-09-12] MEDS: FUROSEMIDE 20MG TABLET PO SCH (09:29)
[2020-09-12] MEDS: GABAPENTIN 300MG CAPSULE PO SCH ×2 (09:29→12:51)
[2020-09-12] MEDS: SERTRALINE HCL 50MG TABLET PO SCH (09:29)
[2020-09-12] MEDS: MAGNESIUM OXIDE 400MG TABLET PO SCH (09:29)
[2020-09-12 12:00] VITALS: BP 116/80
[2020-09-12 15:19] VITALS: BP 116/80
[2020-09-12] MEDS ORDERED: PANT40TA51 PO (15:38)
[2020-09-12] MEDS ORDERED: LACT10SO3 MT (15:39)
== END 2020-09-12 16:40 | DRG 194 ==
LOC: ER 01:57 → MICUSO 12:32 → 5WST 09-01 07:19
PROVIDERS: ADMIT Internal Medicine; ATTEND Internal Medicine
PROC: 0W9G3ZZ Drainage of Peritoneal Cavity, Percutaneous Approach (ICD-10-PCS; principal; 2020-09-06)
PROC: 02HV33Z Insertion of Infusion Device into Superior Vena Cava, Percutaneous Approach (ICD-10-PCS; 2020-09-07)
PROC: B548ZZA Ultrasonography of Superior Vena Cava, Guidance (ICD-10-PCS; 2020-09-07)
DX: I11.0 Hypertensive heart disease with heart failure (principal); I26.99 Other pulmonary embolism without acute cor pulmonale; D70.9 Neutropenia, unspecified; I82.622 Acute embolism and thrombosis of deep veins of left upper extremity; J90 Pleural effusion, not elsewhere classified; G82.20 Paraplegia, unspecified; D68.9 Coagulation defect, unspecified; E88.09 Other disorders of plasma-protein metabolism, not elsewhere classified; I50.23 Acute on chronic systolic (congestive) heart failure; J91.8 Pleural effusion in other conditions classified elsewhere; I27.20 Pulmonary hypertension, unspecified; R18.8 Other ascites; D50.9 Iron deficiency anemia, unspecified; F12.90 Cannabis use, unspecified, uncomplicated; I42.9 Cardiomyopathy, unspecified; E03.9 Hypothyroidism, unspecified; N28.9 Disorder of kidney and ureter, unspecified; R06.00 Dyspnea, unspecified; R74.01 Elevation of levels of liver transaminase levels; K72.90 Hepatic failure, unspecified without coma; R16.0 Hepatomegaly, not elsewhere classified; I87.8 Other specified disorders of veins; L85.3 Xerosis cutis; E80.6 Other disorders of bilirubin metabolism; K74.60 Unspecified cirrhosis of liver; I42.0 Dilated cardiomyopathy; I36.1 Nonrheumatic tricuspid (valve) insufficiency; Z20.822 Contact with and (suspected) exposure to COVID-19; Z86.718 Personal history of other venous thrombosis and embolism; Z80.8 Family history of malignant neoplasm of other organs or systems; Z79.01 Long term (current) use of anticoagulants; Z82.49 Family history of ischemic heart disease and other diseases of the circulatory system; Z86.711 Personal history of pulmonary embolism; Z87.891 Personal history of nicotine dependence; Z95.818 Presence of other cardiac implants and grafts; Z88.0 Allergy status to penicillin; Z88.8 Allergy status to other drugs, medicaments and biological substances; Z91.040 Latex allergy status; Z79.891 Long term (current) use of opiate analgesic; Z79.899 Other long term (current) drug therapy; I69.954 Hemiplegia and hemiparesis following unspecified cerebrovascular disease affecting left non-dominant side; Z79.890 Hormone replacement therapy; Z99.3 Dependence on wheelchair; I34.0 Nonrheumatic mitral (valve) insufficiency; T82.898A Other specified complication of vascular prosthetic devices, implants and grafts, initial encounter
CPT/HCPCS: 36415; 36573; 36600; 49083; 71045; 76700; 80048; 80053; 80061; 80076; 82140; 82150; 82247; 82248; 82375; 82533; 82607; 82728; 82746; 82805; 82977; 83540; 83550; 83735; 83880; 84100; 84439; 84443; 84484; 84703; 85025; 85044; 86376; 86705; 86709; 86803; 87340; 87426; 93005; 93970; 93971; 94640; 97162; 97165; 97530; 99285; C1725; C1893; C9113; J1642; J1650; J2060; J2270; J2405; J2765; J3490; J8597; Q0162; Q0163

== ENCOUNTER 2020-09-17 02:45 | Emergency (ER) | payer MEDICARE, MEDICAID ==
[~2020-09-17] VITALS: Ht 172.7 cm; Wt 82.0 kg
[~2020-09-17 02:45] MED LIST changes: -COR3 MT; +LACT10SO3 MT; +LEVO25TA7 PO; -LEVO500T2 MT; +PANT40TA51 PO
[2020-09-17] MEDS ORDERED: ASPIRIN 325MG EC TABLET PO ONE (03:15)
[2020-09-17] MEDS ORDERED: ONDANSETRON HCL 4MG/2ML INJ IV STA (03:26)
[2020-09-17] MEDS ORDERED: MORPHINE SULFATE 4 MG/ML CPJ (NOT FOR IM USE) IV STA (03:26)
[2020-09-17 03:52] LABS: HEMATOCRIT. 33.6 % (36.0-48.0); HEMOGLOBIN. 10.4 g/dL (12.0-16.0); MEAN CORPUSCULAR HEMOGLOBIN 25.3 pg (28.0-32.0); MEAN CORPUSCULAR VOLUME 81.5 fL (81.0-99.0); MEAN PLATELET VOLUME 8.8 fl (7.4-10.4); PLATELET 169 x1000/uL (130-400); RED BLOOD CELL COUNT 4.12 mill/uL (4.2-5.4); RED CELL DISTRIBUTION WIDTH 24.8 % (11.6-14.6)
[2020-09-17 04:01] LABS: CHLORIDE 104 mEq/L (98-107)
[2020-09-17 05:20] LABS: NUCLEATED RED BLOOD CELLS 1 /100 WBC; PLATELET ESTIMATE NORMAL
[2020-09-17] MEDS ORDERED: ONDANSETRON 4MG ODT PO ONE (13:00)
[2020-09-17 15:45] VITALS: BP 113/69
== END 2020-09-17 16:50 ==
LOC: ER 02:45
DX: R07.89 Other chest pain (principal); J44.1 Chronic obstructive pulmonary disease with (acute) exacerbation; I50.9 Heart failure, unspecified; Z88.8 Allergy status to other drugs, medicaments and biological substances; Z88.0 Allergy status to penicillin; Z91.040 Latex allergy status; Z79.899 Other long term (current) drug therapy; Z86.73 Personal history of transient ischemic attack (TIA), and cerebral infarction without residual deficits
CPT/HCPCS: 36415; 71045; 80053; 83880; 84484; 85025; 93005; 96374; 96375; 99285; J2270; J2405; Q0162